=== PATIENT | male | born 1955 | race Caucasian/White ===

== ENCOUNTER 2016-06-05 11:55 | Emergency (ER) | payer BC ==
--- NOTE | 2016-06-05 12:36 | UC ---
Cardiac HPI - HPI Summary HPI Summary: 1 WEEK OF LEFT ANTERIOR/LEFT ARM "FUNNY SENSATION". "LIKE A HAND IS SQUEEZING BUT NOT THAT TIGHTLY". SX EVERY DAY FOR MOST OF THE DAY. SEEMS TO LET UP AT RANDOM. NOT WORSE WITH EXERTION. NO SOB, NAUSEA, SWEATS OR DIZZINESS. HAS H/O CAD WITH STENTS. - History of Current Complaint Chief Complaint: UCChestPain Stated Complaint: LEFT ARM AND CHEST DISCOMFORT Time Seen by Provider: 06/05/16 12:28 Hx Obtained From: Patient Onset/Duration: Gradual Onset, Lasting Days, Still Present Initial Severity: Mild Current Severity: Mild Pain Intensity: 2 Chest Pain Location: Left Anterior Character: Tightness, Pressure/Squeezing Aggravating: Nothing Alleviating: Nothing Associated Signs & Symptoms: Positive: Chest Pain. Negative: Vision Changes, Anxiety, Recent Stress, Headaches, Numbness, Tingling, Weakness, Dizziness, SOB , Swelling, Syncope, Fever, Diaphoresis, Nausea/Vomiting, Palpitations, Cough, Hemoptysis, Back Pain, Abdominal Pain, Calf Pain/Swelling - Allergy/Home Medications Allergies/Adverse Reactions: Allergies Allergy/AdvReac Type Severity Reaction Status Date / Time No Known Allergies Allergy Verified 04/27/15 15:23 PMH/Surg Hx/FS Hx/Imm Hx Endocrine History Of: Denies: Diabetes, Thyroid Disease Cardiovascular History Of: Reports: Cardiac Disorders - Stent placed 10/06/13, Hypertension Denies: Myocardial Infarction Respiratory History Of: Reports: Asthma - [facility], not in 24 years Denies: COPD GI/ History Of: Denies: Ulcer Psychological History Of: Reports: Depression - Surgical History Surgical History: Yes Surgery Procedure, Year, and Place: tonsillectomy, sinus surgery, meniscus repair, cardiac stent placed 2013 - Family History Known Family History: Positive: Cardiac Disease - Social History Alcohol Use: Occasionally Substance Use Type: None Smoking Status (MU): Former Smoker Type: Cigarettes, Cigars, Pipe Length of Time of Smoking/Using Tobacco: 10 years Have You Smoked in the Last Year: No When Did the Patient Quit Smoking/Using Tobacco: 1980 - Immunization History Most Recent Influenza Vaccination: 2016/2016 season Most Recent Tetanus Shot: 2011 Most Recent Pneumonia Vaccination: never Review of Systems Constitutional: Negative Respiratory: Negative Cardiovascular: Chest Pain Gastrointestinal: Negative Musculoskeletal: Myalgia All Other Systems Reviewed And Are Negative: Yes Physical Exam Triage Information Reviewed: Yes Appearance: Well-Appearing, No Pain Distress, Well-Nourished Vital Signs: Initial Vital Signs Temp 98.3 F 06/05/16 12:12 Pulse 61 06/05/16 12:12 Resp 18 06/05/16 12:12 BP 137/78 06/05/16 12:12 Pulse Ox 97 06/05/16 12:12 Vital Signs Reviewed: Yes Eyes: Positive: Conjunctiva Clear ENT: Positive: Hearing grossly normal, Pharynx normal, TMs normal Neck: Positive: Supple, Nontender, No Lymphadenopathy Respiratory Exam: Normal Cardiovascular Exam: Normal Abdomen Description: Positive: Soft Musculoskeletal: Positive: No Edema Neurological: Positive: Alert Psychological: Positive: Age Appropriate Behavior Skin: Negative: rashes Diagnostics - EKG Cardiac Rate: NL - 61 BPM Cardiac Rhythm: Sinus: Normal Ectopy: None ST Segment: Normal - Assessment/Plan Course Of Treatment: TOOK ASA 81MG AT HOME THIS MORNING. WILL GIVE 3 MORE ( 243MG ASA) CHEW AND SWALLOW. TO ER [facility] IN PRIVATE CAR. EKG UNCHANGED FROM PREVIOUS. - Clinical Impression Provider Diagnoses: CHEST/LEFT ARM PAIN - Physician Notifications Discussed Patient Care With: MIGUEL LASSITER Time Discussed With Above Provider: 12:42 - TO [facility] [place] ER BY PRIVATE CAR Discharge - Discharge Plan Condition: Good Disposition: AGAINST MEDICAL ADVICE Referrals: Cindi Cain MD [Primary Care Provider] -
[2016-06-05] MEDS ORDERED: Aspirin Low Dose CHEW TAB* 81 MG PO ONE (12:42)
[2016-06-05 12:58] VITALS: BP 166/89
== END 2016-06-05 12:41 | disposition left against medical advice (07) ==
LOC: UCEAST 11:55
DX: R07.89 Other chest pain (principal); M79.602 Pain in left arm; Z87.891 Personal history of nicotine dependence
CPT/HCPCS: 93005; 99212; A9270-GY; G0463

== ENCOUNTER 2016-06-05 13:11 | Observation (INO) | payer BC ==
[2016-06-05] MEDS ORDERED: Aspirin Low Dose CHEW TAB* 81 MG PO ONE (13:20)
[2016-06-05] MEDS ORDERED: Nitroglycerin TAB 0.4 MG* 0.4 MG TAB SL ONE (13:29)
--- NOTE | 2016-06-05 13:49 | RAD ---
Indication: Chest pain. Single frontal view of the chest performed at 1338 hours was reviewed. Comparison is made with previous exam dated April 28, 2014. No mediastinal shift is noted. Heart is of normal size and configuration. Lung johnson appear clear. IMPRESSION: NO ACTIVE CARDIOPULMONARY DISEASE IS NOTED.
[2016-06-05 14:48] LABS: Hematocrit 44 % (42-52); Mean Corpuscular HGB Conc 34 g/dl (31-36); Mean Corpuscular Hemoglobin 30 pg (27-31); Mean Corpuscular Volume 88 fL (80-94); Mean Platelet Volume 9 um3 (7.4-10.4); Red Blood Count 4.98 10^6/ul (4.0-5.4); Red Cell Distribution Width 13 % (10.5-15); White Blood Count 7.2 10^3/ul (3.5-10.8)
[2016-06-05 15:18] LABS: BUN/Creatinine Ratio 15.8 (8-20); Calcium 9.6 mg/dL (8.6-10.3); EGFR African American 133.7 (>60); EGFR Non-African American 103.9 (>60); Globulin 2.7 g/dL (2-4); Potassium 3.9 mmol/L (3.5-5.0); Total Bilirubin 0.7 mg/dL (0.2-1.0); Total Protein 6.7 g/dL (6.4-8.9)
[2016-06-05 15:19] LABS: Troponin I 0.01 ng/mL (<0.04)
[2016-06-05] MEDS ORDERED: Nitroglycerin 0.4 MG/HR PATCH* (10 MG) TRANSDERM ONE (15:34)
[2016-06-05] MEDS ORDERED: Atorvastatin* 10 MG TAB PO SCH (21:00)
[2016-06-05] MEDS: Ticagrelor* 90 MG TAB PO SCH (22:17)
[2016-06-05] MEDS: Heparin VIAL(*) 5000 UNITS/ML VIAL (FIVE THOUSAND) SUBCUT SCH (22:18)
--- NOTE | 2016-06-05 23:05 | HP ---
HISTORY AND PHYSICAL:* ADDENDUM: Mr. Pompa is a 60-year-old male with a history of coronary artery disease, status post stenting in the past who presents complaining of chest pain. The patient's initial workup includes negative troponin. He is currently chest pain free. He is going to be placed on overnight observation with stress test in the morning if his troponins continue to be negative. For further details of the patient's presentation and plan, please see history and physical dictated by Sandra Valdovinos NP, on 06/05/16 with which I agree. [id number]/[facility] #: [id number] MTDD
--- NOTE | 2016-06-05 23:38 | HP ---
ATTENDING PHYSICIAN'S ADDENDUM NOW INCLUDED ON THIS REPORT HISTORY AND PHYSICAL: DATE OF ADMISSION: 06/05/16 PRIMARY CARE PROVIDER: Dr. Cain. ATTENDING PHYSICIAN: Dr. Sammie Olson* (dictated by Zac Cruz, HELGA). CHIEF COMPLAINT: Intermittent left arm and left sided chest discomfort for 1 week. HISTORY OF PRESENT ILLNESS: Mr. Pompa is a 60-year-old male with past medical history significant for coronary artery disease, right bundle branch block, hypertension, and hyperlipidemia, who initially presented to the Urgent Care today for evaluation of intermittent left arm discomfort and left upper chest to axillary discomfort. The patient states that this pain is different than chest discomfort he has felt in the past. The patient denies this being a chest pain, but more of a discomfort like somebody was squeezing his arm. The patient took an aspirin at home prior to presenting to Urgent Care. While at Urgent Care, the patient had an EKG showing a sinus rhythm with a rate of 61 and T-wave inversion in lead V1, this is similar to previous EKG from 04/28/14. The patient states that he would follow up with his primary care provider, but he is out of the office until June 15. The patient typically follows with Dr. Diaz for cardiology. The patient did not find any alleviating or provoking factors for his symptoms. He denies any fever, chills, shortness of breath, nausea, vomiting, diaphoresis. Based off on concern and the patient's risk factors, the patient was sent to the emergency room for further evaluation of his symptoms. While in the emergency room, the patient had a repeat EKG showing a sinus aida and a rate of 58. Again, this EKG was similar to previous EKG at Urgent Care from today and from previous EKG on the system from 04/28/14. The patient had a chest x- ray showing no acute cardiopulmonary disease. The patient received nitro, which helped his pain, he is now chest pain free. Due to the patient's risk factors, the hospitalists were asked to evaluate the patient for admission for chest pain and rule out acute coronary syndrome. PAST MEDICAL HISTORY: 1. Depression. 2. Coronary artery disease. 3. Right bundle branch block. 4. Hypertension. 5. Hyperlipidemia. PAST SURGICAL HISTORY: 1. Status post tonsillectomy. 2. Status post septoplasty in 1999. 3. Status post meniscus repair. 4. Status post RCA cardiac stent in 2013. HOME MEDICATIONS: Include: 1. Vitamin D 2000 IU oral daily. 2. Brilinta 90 mg oral twice daily. 3. Fish oil 1000 mg oral twice daily. 4. Nitroglycerin 0.4 mg sublingual every 5 minutes as needed for chest pain. 5. Toprol-XL 12.5 mg every morning. 6. Atorvastatin 40 mg oral every evening. 7. Aspirin 81 mg oral every morning. ALLERGIES: No known drug allergies. FAMILY HISTORY: The patient's father and grandfather have a history of myocardial infarction in their 50s. The patient denies any family history of diabetes or cancer. SOCIAL HISTORY: The patient is a former smoker, he quit smoking in 1980, prior to that he had smoked for approximately 10 years. The patient occasionally drinks alcoholic beverages. The patient denies recreational drug use. 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 He has 2 friends who would be his surrogate decision makers in the event he is unable to make decisions for himself, Tracy Santiago and Rajesh Reeves. REVIEW OF SYSTEMS: I performed a 14-point review of systems. All the pertinent positives and negatives are mentioned in the history of present illness. The remaining review of systems is negative. PHYSICAL EXAMINATION GENERAL APPEARANCE: The patient is alert, pleasant, appears to be in no acute distress. VITAL SIGNS: Temperature 98.7, heart rate 66, respiratory rate 18, O2 sat 97% room air, blood pressure 151/88. HEENT: Normocephalic, atraumatic. Pupils are equal and reactive to light. Extraocular movements are intact. NECK: Supple. There is no lymphadenopathy noted. RESPIRATORY: There is no accessory muscle use and lungs are clear to auscultation bilaterally. CARDIOVASCULAR: Regular rate and rhythm. S1 and S2 present. There are no murmurs, rubs, or gallops heard. ABDOMEN: Soft, nontender, nondistended. There are bowel sounds present x4. EXTREMITIES: There is no lower extremity edema. DP and PT pulses are 2+ and symmetric. MUSCULOSKELETAL: There is no clubbing or cyanosis noted. The patient exhibits good strength in all extremities. NEUROLOGICAL: The patient is alert and oriented x4. Cranial nerves II through XII are grossly intact. PSYCHOLOGICAL: The patient is calm and cooperative. SKIN: There are no rashes or abnormalities seen. DIAGNOSTIC STUDIES/LAB DATA: Sodium 136, potassium 3.9, chloride 104, CO2 26, BUN 12, creatinine 0.76, glucose 86. White blood cell count 7.2, hemoglobin 15.0, hematocrit 44, platelet count 289. Troponin 0.01. EKG at Urgent Care from 11:59 today shows a sinus rhythm with a rate of 61 and T - wave inversion in lead V1. The patient had a repeat EKG in the emergency room at 13:18 showing a sinus bradycardia with a rate of 58. Previous EKGs are similar to previous EKG from 04/28/14, at which time, the patient was also in sinus rhythm with a rate of 63. Chest x-ray from today. Radiologist's impression: No active cardiopulmonary disease. IMPRESSION AND PLAN: Mr. Pompa is a 60-year-old male with past medical history significant for coronary artery disease, cardiac stenting to his right coronary artery, hyperlipidemia, hypertension, who initially presented to Urgent Care with chest pain and was sent to the emergency room for chest pain. He will be admitted on observation for chest pain, rule out acute coronary syndrome. 1. Chest pain. The patient will be admitted to rule out acute coronary syndrome. He will be monitored on telemetry and have serial troponins. We will also recheck an EKG in the morning. The patient will have an exercise stress test in the morning. We will also check fasting lipids. The patient's BARRY score is 2. The patient's initial troponin was neagtive at 0.01. I suspect this is atypical chest pain and may likely be musculoskeletal. The patient denies any recent history of injury or overuse of the left arm, but he has been preparing for cycling and lifting weights and also feels this may be muscular in nature. 2. Hypertension. The patient will be continued on his home Toprol. The patient has been slightly hypertensive during his time in the emergency room, but he had been anxious about possibly being admitted. We will continue to monitor his blood pressures and adjust his medications as needed. 3. Hyperlipidemia. The patient will be continued on his home atorvastatin. We will check fasting lipids in the morning. 4. History of coronary artery disease. The patient will be continued on his Toprol, aspirin, atorvastatin, and Brilinta. 5. Fluids, electrolytes, and nutrition. The patient will be on a heart healthy , no caffeine diet. He will be n.p.o. after midnight for stress test in the morning. 6. Code status: Full code. 7. DVT prophylaxis. The patient is at moderate risk and will have subcu heparin. 8. Disposition: Observation. TIME SPENT: Time for this admission was 60 minutes, 30 minutes was spent face- to- face with the patient discussing medications, past medical history, and the events leading up to his arrival today and performing a physical examination. The case has been reviewed with the attending, Dr. Olson, who agrees with the plan of care. Reviewed by ZAC CRUZ, POT LINING SUPERVISOR-C 06/06/16 1318 ADDENDUM: Mr. Pompa is a 60-year-old male with a history of coronary artery disease, status post stenting in the past who presents complaining of chest pain. The patient's initial workup includes negative troponin. He is currently chest pain free. He is going to be placed on overnight observation with stress test in the morning if his troponins continue to be negative. For further details of the patient's presentation and plan, please see history and physical dictated by Zac Cruz NP, on 06/05/16 with which I agree. SAMMIE OLSON MD CC: Dr. Cain* [id number]/[facility] #: [id number]/[facility] #: [id number] MADELYN
[2016-06-06] MEDS: Heparin VIAL(*) 5000 UNITS/ML VIAL (FIVE THOUSAND) SUBCUT SCH (05:56)
[2016-06-06 07:11] LABS: HDL Cholesterol 36.5 mg/dL
--- NOTE | 2016-06-06 07:42 | PN ---
Subjective Date of Service: 06/06/16 Interval History: . no further CP or arm pain since admission. 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 He has agreed at this time to stay for the stress test. He does not think this is cardiac and thinks most likely this is "sore muscles" in nature. He does report that he experienced chest discomfort during exercise and feels that is was relived by Nitro. He believes he had a stress test about a year ago. Objective Active Medications: Aspirin (Aspirin Low Dose Tab*) 81 mg PO QAM [facility] Atorvastatin Calcium (Lipitor*) 40 mg PO BEDTIME [facility] Last Admin: 06/05/16 22:15 Dose: 40 mg Heparin Sodium (Porcine) (Heparin Vial(*)) 5,000 units SUBCUT Q8HR [facility] Last Admin: 06/06/16 05:56 Dose: 5,000 units Metoprolol Succinate (Toprol Xl Tab*) 12.5 mg PO QAM [facility] Ticagrelor (Brilinta*) 90 mg PO BID [facility] Last Admin: 06/05/16 22:17 Dose: 90 mg Vital Signs 06/05/16 06/05/16 06/05/16 16:00 16:30 16:48 Temperature 98.7 F Pulse Rate 59 66 Respiratory 13 18 Rate Blood Pressure 151/88 151/88 (mmHg) O2 Sat by Pulse 98 97 Oximetry 06/05/16 06/05/16 06/05/16 17:00 17:01 17:42 Temperature 98.9 F 98.1 F Pulse Rate 63 63 60 Respiratory 13 18 16 Rate Blood Pressure 163/83 163/83 165/89 (mmHg) O2 Sat by Pulse 99 97 100 Oximetry 06/05/16 06/05/16 06/05/16 19:34 19:46 20:00 Temperature 98.2 F Pulse Rate 62 Respiratory 16 18 16 Rate Blood Pressure 114/65 (mmHg) O2 Sat by Pulse 97 Oximetry 06/06/16 06/06/16 00:18 04:05 Temperature 97.3 F 97.8 F Pulse Rate 53 56 Respiratory 16 16 Rate Blood Pressure 109/56 115/64 (mmHg) O2 Sat by Pulse 98 98 Oximetry Oxygen Devices in Use Now: None Appearance: healthy appearing 60 yo male A+O x3 in NAD Eyes: No Scleral Icterus, PERRLA Ears/Nose/Mouth/Throat: NL Teeth, Lips, Gums, Mucous Membranes Moist Neck: NL Appearance and Movements; NL JVP Respiratory: Symmetrical Chest Expansion and Respiratory Effort, Clear to Auscultation Cardiovascular: NL Sounds; No Murmurs; No JVD, RRR, No Edema Abdominal: NL Sounds; No Tenderness; No Distention Extremities: No Edema, No Clubbing, Cyanosis Skin: No Rash or Ulcers, No Nodules or Sclerosis Neurological: Alert and Oriented x 3, NL Sensation, NL Gait, NL Muscle Strength and Tone Lines/Tubes/Other Access: Clean, Dry and Intact Peripheral IV Nutrition: Taking PO's Result Diagrams: 06/05/16 14:20 06/05/16 14:20 Assess/Plan/Problems-Billing Assessment: 60 yo male with PMH of CAD s/p stent, HLD, HTN who presented to the emergency department intermittent left arm pain and chest discomfort for 1 week. - Patient Problems (1) Chest pain Comment: - 3 flat troponins, no EKG changes. No further symptoms. - Plan for cardiac stress test this morning. (2) CAD (coronary artery disease) Comment: - continue statin, Brillinta, ASA, BB (3) HTN (hypertension) Comment: - controlled on home meds, continue metoprolol (hold prior to stress test) (4) Full code status (5) DVT prophylaxis Comment: HSQ Status and Disposition: OBV. Discharge pending stress test results
[2016-06-06] MEDS ORDERED: Metoprolol Succinate XL TAB* 25 MG PO SCH (09:00)
[2016-06-06] MEDS ORDERED: Aspirin Low Dose CHEW TAB* 81 MG PO SCH (09:00)
[2016-06-06] MEDS: Ticagrelor* 90 MG TAB PO SCH (09:04)
[2016-06-06 11:04] VITALS: BP 123/61
--- NOTE | 2016-06-07 14:09 | RAD ---
Indication: Chest pain. Myocardial perfusion scan was performed utilizing 1 day protocol. 10.2 mCi of technetium 99m tetrofosmin was injected for the rest portion of the study. Pharmacological stress was applied and 25.56 mCi of technetium 99m tetrofosmin was injected for the stress portion of the study. There is homogeneous distribution of radiotracer throughout the left ventricle. There is some attenuation artifact in the inferior septal wall which appears to reverse attenuated corrected images. The ejection fraction at stress is evaluation of wall motion demonstrates no evidence of focal wall motion abnormality. IMPRESSION: No evidence of fixed or reversible perfusion defect is identified. ASSESSMENT: Low risk Based on imaging criteria from ACC/AHA 2002 Guideline Update for the Management of Patients With Chronic Stable Angina Table 23. Noninvasive Risk Stratification.
--- NOTE | 2016-06-15 17:51 | ED ---
gamal Soriano Timothy, scribed for Robert Figueroa MD on 06/05/16 at 1333 . HPI Chest Pain - HPI Summary HPI Summary: Jered Pompa is a 60 yo male presenting to [facility] with 2/10 intermittent left sided CP radiating through his left shoulder and left arm for the past week. He states it is not exertional. He denies fever, sweats, chills, coughing, abd pain , nausea, or vomiting. He has self-medicated with 324 mg aspirin this am. His MHx includes stent, cardia arrhythmia, CAD, angina, HLD, HTN, asthma, colon polyps. Dr. Diaz is his injection wax molder, and Dr. Cain is his PCP. - History of Current Complaint Chief Complaint: EDChestPainROMI Time Seen by Provider: 06/05/16 13:20 Hx Obtained From: Patient Onset/Duration: Started Days Ago, Still Present Timing: Constant, Lasting Days Initial Severity: Moderate Current Severity: Moderate Pain Intensity: 2 Pain Scale Used: 0-10 Numeric Chest Pain Radiates: Yes Chest Pain Radiates To:: Arm - left Character: Other: - discomfort Associated Signs and Symptoms: Positive: Chest Pain. Negative: Dizziness, Shortness of Breath, Fever, Chills, Diaphoresis, Nausea, Cough, Productive Cough , Nonproductive Cough, Abdominal Pain, Calf Pain/Swelling, Vomiting, Edema - Allergy/Home Medications Allergies/Adverse Reactions: Allergies Allergy/AdvReac Type Severity Reaction Status Date / Time No Known Allergies Allergy Verified 06/05/16 13:13 PMH/Surg Hx/FS Hx/Imm Hx Endocrine/Hematology History: Denies: Hx Diabetes, Hx Thyroid Disease Cardiovascular History: Reports: Hx Angina, Hx Coronary Artery Disease, Hx Hypercholesterolemia, Hx Hypertension Denies: Hx Myocardial Infarction, Hx Valvular Heart Disease Respiratory History: Reports: Hx Asthma - excercise induced while in [facility], not in 24 years Denies: Hx Chronic Obstructive Pulmonary Disease (COPD) GI History: Reports: Other GI Disorders - colon polyps Denies: Hx Ulcer Sensory History: Reports: Hx Contacts or Glasses, Hx Vision Problem - glasses with pt Denies: Hx Deafness Opthamlomology History: Reports: Hx Contacts or Glasses, Hx Vision Problem - glasses with pt Psychiatric History: Reports: Hx Depression - Surgical History Surgery Procedure, Year, and Place: tonsillectomy, sinus surgery, meniscus repair, cardiac stent placed 2014 Hx Anesthesia Reactions: No Infectious Disease History: No Infectious Disease History: Denies: Hx Hepatitis, Hx Human Immunodeficiency Virus (HIV), History Other Infectious Disease, Traveled Outside the [place] in Last 30 Days - Family History Known Family History: Positive: Cardiac Disease - Social History Alcohol Use: Occasionally Substance Use Type: Reports: None Smoking Status (MU): Former Smoker Type: Cigarettes, Cigars, Pipe Length of Time of Smoking/Using Tobacco: 10 years Have You Smoked in the Last Year: No Review of Systems Constitutional: Negative Negative: Fever, Skin Diaphoresis Eyes: Negative Negative: Other - eye redness ENT: Negative Negative: Sore Throat Positive: Chest Pain Respiratory: Negative Negative: Shortness Of Breath, Cough Gastrointestinal: Negative Negative: Abdominal Pain, Vomiting, Nausea Genitourinary: Negative Negative: dysuria, hematuria Musculoskeletal: Other - left shoulder and arm pain Negative: Edema - legs Skin: Negative Negative: Rash Neurological: Negative Psychological: Normal All Other Systems Reviewed And Are Negative: Yes Physical Exam - Summary Physical Exam Summary: Constitutional: Well-developed, Well-nourished, Alert. (-) Distressed Skin: Warm, Dry HENT: Normocephalic; Atraumatic Eyes: Conjunctiva normal Neck: Musculoskeletal ROM normal neck. (-) JVD, (-) Stridor, (-) Tracheal deviation Cardio: Rhythm regular, rate normal, Heart sounds normal; Intact distal pulses; The pedal pulses are 2+ and symmetric. Radial pulses are 2+ and symmetric. (-) Murmur Pulmonary/Chest wall: Effort normal. (-) Respiratory distress, (-) Wheezes, (-) Rales Abd: Soft, (-) Tenderness, (-) Distension, (-) Guarding, (-) Rebound Musculoskeletal: (-) Edema Lymph: (-) Cervical adenopathy Neuro: Alert, Oriented x3 Psych: Mood and affect Normal Triage Information Reviewed: Yes Vital Signs On Initial Exam: Initial Vitals Temp Pulse Resp BP Pulse Ox 97.8 F 67 16 142/109 100 06/05/16 13:14 06/05/16 13:14 06/05/16 13:14 06/05/16 13:14 06/05/16 13:14 Vital Signs Reviewed: Yes Diagnostics - Vital Signs Vital Signs Temp Pulse Resp BP Pulse Ox 06/05/16 13:14 97.8 F 67 16 142/109 100 - Laboratory Result Diagrams: 06/05/16 14:20 06/05/16 14:20 Lab Statement: Any lab studies that have been ordered have been reviewed, and results considered in the medical decision making process. - Radiology CXR Xray Interpretation: No Acute Changes - IMPRESSION: NO ACTIVE CARDIOPULMONARY DISEASE IS NOTED. Radiology Interpretation Completed By: Radiologist - EKG 1318 Cardiac Rate: Bradycardia - 58 bPM EKG Interpretation: Sinus bradycardia @ 58 BPM. Re-Evaluation - Re-Evaluation First Eval Re-Evaluation Time: 15:31 Change: Improved Comment: Pt recieved NTG, which resolved his CP. Chest Pain Course/Dx - Course Assessment/Plan: Jered Pompa is a 60 yo male presenting to [facility] with CP and left shoulder and arm pain. After review of imaging and lab studies (see documentation) and discussion with Dr. Olson he will be admitted to [facility] for further evaluation and Tx of his CP. - Diagnoses Provider Diagnoses: Chest pain, unspecified, CAD (coronary artery disease) - Provider Notifications Discussed Care Of Patient With: 1535 - Dr. Olson (hospitalist) - discussed Pt condition, agrees to admit Pt. Instructed by Provider To: Admit As Inpatient Discharge - Discharge Plan Condition: Stable Disposition: ADMITTED TO [facility] Referrals: Cindi Cain MD [Primary Care Provider] - The documentation as recorded by the gamal mcgee Timothy accurately reflects the service I personally performed and the decisions made by , Robert Figueroa MD.
== END 2016-06-06 13:10 | disposition home or self-care (01) ==
LOC: ED 13:11 → MEDTELE 15:37
PROVIDERS: ADMIT Internal Medicine; ATTEND Hospitalist
DX: R07.9 Chest pain, unspecified (principal); M79.602 Pain in left arm; I25.10 Atherosclerotic heart disease of native coronary artery without angina pectoris; I10 Essential (primary) hypertension; I45.10 Unspecified right bundle-branch block; E78.5 Hyperlipidemia, unspecified; R00.1 Bradycardia, unspecified; Z79.899 Other long term (current) drug therapy; Z87.891 Personal history of nicotine dependence
CPT/HCPCS: 36415; 71010; 78452; 80053; 80061; 83605; 84484; 85025; 93005; 93017; 96372; 99283; A9270-GY; A9502; G0378; J1644